=== PATIENT | female | born 1985 | race Caucasian/White ===

== ENCOUNTER 2022-01-07 15:04 | Emergency (ER) | payer OTHER ==
[~2022-01-07] VITALS: Ht 160 cm; Wt 67.0 kg
[2022-01-07 15:29] VITALS: BP 137/87
[2022-01-07] MEDS ORDERED: KETOROLAC TROMETHAMINE 60 MG/2 ML VIAL IM ONE (15:30)
[2022-01-07] MEDS ORDERED: BACITRACIN 0.9 GM PACKET OINTMENT TP ONE (15:45)
[2022-01-07] MEDS ORDERED: HYDROCODONE/ACETAMINOPHEN 5-325 MG TABLET PO ONE (15:45)
[2022-01-07] MEDS ORDERED: CEPHALEXIN MONOHYDRATE 500 MG CAPSULE PO ONE (15:45)
[2022-01-07] MEDS ORDERED: POVIDONE-IODINE 10% 15 ML SOLUTION UD TP ONE (15:45)
[2022-01-07] MEDS ORDERED: LIDOCAINE 1% 10 ML VIAL PERC ONE (15:45)
[2022-01-07] MEDS ORDERED: MUPI1OIN5 TP (18:04)
[2022-01-07] MEDS ORDERED: CEPH-558 PO (18:04)
== END 2022-01-07 18:18 | disposition home or self-care (01) ==
LOC: EMS 15:08
DX: S01.81XA Laceration without foreign body of other part of head, initial encounter (principal); W18.39XA Other fall on same level, initial encounter; Y93.89 Activity, other specified; Y92.89 Other specified places as the place of occurrence of the external cause; Y99.8 Other external cause status
CPT/HCPCS: 12013; 70450; 72125; 96372; 99284; J1885; J3490